=== PATIENT | female | born 1940 | race African-American/Black ===

== ENCOUNTER 2017-01-28 10:11 | Emergency (ER) | payer MEDICARE ==
[~2017-01-28 10:11] MED LIST: DORZOL/TIMOL1 ML OP; GLUCOTRO10 PO; HALF81 PO; L40 PO; LOP25 PO; METAGLIP1 TA2 PO; PRAVACHOL40 MG PO; PRIN20 PO; TIMOLOL MAL0.5 % OPH; TRAVATAN Z0.004 % OPH
== END 2017-01-28 10:46 | disposition home or self-care (01) ==
LOC: ER 10:11
DX: S01.112D Laceration without foreign body of left eyelid and periocular area, subsequent encounter (principal); I10 Essential (primary) hypertension; Z90.710 Acquired absence of both cervix and uterus; Z79.82 Long term (current) use of aspirin; Z79.899 Other long term (current) drug therapy
CPT/HCPCS: 99282